=== PATIENT | male | born 1930 | race Caucasian/White ===

== ENCOUNTER 2017-02-05 10:36 | Observation (INO) | payer MEDICARE, BC ==
[~2017-02-05] VITALS: Ht 175.3 cm; Wt 61.4 kg
[2017-02-05] VITALS (9 sets, daily range): BP systolic 119–169; BP diastolic 54–79; PULSE 54–89; TEMP 97.3–98.4
[2017-02-05] MEDS ORDERED: PRILOSEC 20MG20 MG PO (12:00)
[2017-02-05] MEDS ORDERED: CYANOCOBAL1000 MCG/1 IM (12:01)
[2017-02-05] MEDS ORDERED: LASIX 20MG TABL20 MG PO (12:03)
[2017-02-05] MEDS ORDERED: PRINIVIL40 MG PO (12:04)
[2017-02-05] MEDS ORDERED: HCTZ 25MG TAB25 MG PO (12:04)
[2017-02-05] MEDS ORDERED: FISH OIL 1000MG1 CAP PO (12:06)
[2017-02-05] MEDS ORDERED: ICAPS TABLET1 EACH PO (12:07)
[2017-02-06 04:00] VITALS: BP 113/43; PULSE 44; TEMP 97.4
[2017-02-06 09:00] LABS: CALCIUM 8.3 mg/dL (8.4-10.2); CREATININE, serum 0.92 mg/dL (0.66-1.25); POTASSIUM 4.3 mmol/L (3.4-5.0)
[2017-02-06 09:45] VITALS: BP 143/55; PULSE 40; TEMP 97.3
[2017-02-07] MEDS ORDERED: NORCO 325 MG-51 TAB PO (14:18)
[2017-02-07] MEDS ORDERED: SENOKOT S 50 MG1 TAB PO (14:19)
== END 2017-02-06 14:00 | disposition home or self-care (01) ==
LOC: SDCO 10:36 → SURG 13:48
PROVIDERS: Urology
DX: N21.0 Calculus in bladder (principal); M19.90 Unspecified osteoarthritis, unspecified site; N40.0 Benign prostatic hyperplasia without lower urinary tract symptoms; I25.10 Atherosclerotic heart disease of native coronary artery without angina pectoris; I10 Essential (primary) hypertension; K21.9 Gastro-esophageal reflux disease without esophagitis; E78.00 Pure hypercholesterolemia, unspecified; F03.90 Unspecified dementia, unspecified severity, without behavioral disturbance, psychotic disturbance, mood disturbance, and anxiety; Z95.818 Presence of other cardiac implants and grafts; Z85.46 Personal history of malignant neoplasm of prostate; Z85.51 Personal history of malignant neoplasm of bladder; Z90.79 Acquired absence of other genital organ(s); Z87.891 Personal history of nicotine dependence; Z82.49 Family history of ischemic heart disease and other diseases of the circulatory system; Z80.1 Family history of malignant neoplasm of trachea, bronchus and lung
CPT/HCPCS: C1726; C1769; G0378; J0461; J0690; J1100; J1630; J2405; J2704; J3010; J7030; J7120

== ENCOUNTER 2017-02-07 11:43 | Emergency (ER) | payer MEDICARE, BC ==
[~2017-02-07] VITALS: Ht 172.7 cm; Wt 65.9 kg
[~2017-02-07 11:43] MED LIST: CYANOCOBAL1000 MCG/1 IM; FISH OIL 1000MG1 CAP PO; HCTZ 25MG TAB25 MG PO; ICAPS TABLET1 EACH PO; LASIX 20MG TABL20 MG PO; PRILOSEC 20MG20 MG PO; PRINIVIL40 MG PO
[2017-02-07 11:46] VITALS: BP 181/82; PULSE 56; TEMP 98
[2017-02-07 13:24] LABS: COLLECTION METHOD UROSTOMY
[2017-02-07 13:33] LABS: PH 7 (5-8); SQUAMOUS EPITHELIAL None Seen /hpf; URINE APPEARANCE Clear; URINE BACTERIA None Seen /hpf; URINE BILIRUBIN Negative (NEGATIVE); URINE BLOOD 1+ (NEGATIVE); URINE COLOR Straw; URINE GLUCOSE Negative (NEGATIVE); URINE KETONE Negative (NEGATIVE); URINE LEUKOCYTE ESTERASE Negative (NEGATIVE); URINE PROTEIN(semi-quant) Negative (NEGATIVE); URINE UROBILINOGEN Negative (NEGATIVE)
[2017-02-07] MEDS ORDERED: NORCO 325 MG-51 TAB PO (14:18)
[2017-02-07] MEDS ORDERED: SENOKOT S 50 MG1 TAB PO (14:19)
== END 2017-02-07 13:32 | disposition home or self-care (01) ==
LOC: COL.ER 11:43
PROVIDERS: Urology
DX: N99.538 Other complication of continent stoma of urinary tract (principal); R33.8 Other retention of urine; Z87.442 Personal history of urinary calculi; I25.10 Atherosclerotic heart disease of native coronary artery without angina pectoris; I10 Essential (primary) hypertension; E78.00 Pure hypercholesterolemia, unspecified; Z85.46 Personal history of malignant neoplasm of prostate; Z87.891 Personal history of nicotine dependence; Z90.79 Acquired absence of other genital organ(s); Z90.6 Acquired absence of other parts of urinary tract; Z85.51 Personal history of malignant neoplasm of bladder
CPT/HCPCS: J0696